=== PATIENT | male | born 1960 | race Caucasian/White ===

== ENCOUNTER → 2018-04-29 | Day surgery (SDC) | payer OTHER ==
[~2018-04-29] MED LIST: MICARDIS40 MG PO
== END | disposition home or self-care (01) ==
LOC: ADM 04-26 14:45 → CIR.AMB 09:14
DX: M75.121 Complete rotator cuff tear or rupture of right shoulder, not specified as traumatic (principal); S46.811A Strain of other muscles, fascia and tendons at shoulder and upper arm level, right arm, initial encounter; S46.211A Strain of muscle, fascia and tendon of other parts of biceps, right arm, initial encounter